=== PATIENT | male | born 1995 | race Caucasian/White ===

== ENCOUNTER 2019-03-07 10:48 | Emergency (ER) | payer MEDICAID ==
[~2019-03-07] VITALS: Ht 175.3 cm; Wt 93.0 kg
[~2019-03-07 10:48] MED LIST: CEPH-568
[2019-03-07] MEDS ORDERED: HYDROCODONE/ACETAMINOPHEN 5/325MG TABLET PO STA (11:27)
[2019-03-07 11:45] LABS: CLARITY URINE CLEAR (CLEAR); COLOR URINE YELLOW (YELLOW); KETONES URINE NEGATIVE (NEGATIVE); LEUKOCYTE ESTERASE URINE NEGATIVE (NEGATIVE); NITRITE URINE NEGATIVE (NEGATIVE); OCCULT BLOOD URINE NEGATIVE (NEGATIVE); PH URINE 6.5 (4.5-8.0); PROTEIN URINE NEGATIVE (NEGATIVE); SPECIFIC GRAVITY URINE 1.023 (1.005-1.030); UROBILINOGEN URINE 0.2 E.U./dL (0.2-1.0)
[2019-03-07 11:49] VITALS: BP 106/76
== END 2019-03-07 13:28 | disposition home or self-care (01) ==
LOC: ER 10:48
DX: M54.5 Low back pain (principal)
CPT/HCPCS: 81003; 99283

== ENCOUNTER 2021-10-25 09:19 | Emergency (ER) | payer BC, MEDICAID ==
[~2021-10-25] VITALS: Ht 175.3 cm; Wt 94.0 kg
[2021-10-25] MEDS ORDERED: CYCLOBENZAPRINE 10MG TABLET PO ONE (10:00)
[2021-10-25] MEDS ORDERED: KETOROLAC 60MG/2ML VIAL IM ONE (10:00)
[2021-10-25] MEDS: LIDOCAINE 5% PATCH TOP SCH ×2 (10:27→15:28)
[2021-10-25] MEDS ORDERED: HYDROCODONE/APAP 7.5/325MG 1 TAB TABLET PO ONE (11:15)
[2021-10-25] MEDS ORDERED: NAP5EC MT (11:50)
[2021-10-25] MEDS ORDERED: CYCL10TA7 MT ×2 (11:50)
[2021-10-25] MEDS ORDERED: MORPHINE SULFATE 4 MG/ML CPJ (NOT FOR IM USE) IV ONE (13:00)
[2021-10-25 13:03] LABS: HEMATOCRIT. 45.9 % (42.0-52.0); HEMOGLOBIN. 15.6 g/dL (14.0-18.0); MEAN CORPUSCULAR HEMOGLOBIN 29.3 pg (28.0-32.0); MEAN CORPUSCULAR VOLUME 86.3 fL (80.0-94.0); MEAN PLATELET VOLUME 8.5 fl (7.4-10.4); PLATELET 237 x1000/uL (130-400); RED BLOOD CELL COUNT 5.32 mill/uL (4.7-6.1); RED CELL DISTRIBUTION WIDTH 13.2 % (11.6-14.6)
[2021-10-25 13:10] LABS: CHLORIDE 105 mEq/L (98-107)
[2021-10-25] MEDS ORDERED: MORPHINE SULFATE 4 MG/ML CPJ (NOT FOR IM USE) IV NR (13:45)
[2021-10-25 13:49] LABS: PLATELET ESTIMATE NORMAL
[2021-10-25] MEDS ORDERED: HYDR-4009 MT ×2 (15:19→15:41)
[2021-10-25 15:28] VITALS: BP 131/0
== END 2021-10-25 16:03 | disposition home or self-care (01) ==
LOC: ER 09:19
DX: M54.50 Low back pain, unspecified (principal); M54.16 Radiculopathy, lumbar region; M47.897 Other spondylosis, lumbosacral region
CPT/HCPCS: 36415; 72100; 72148; 80053; 85025; 96372; 96374; 99284; J1885; J2270; Z7610

== ENCOUNTER 2024-11-18 23:13 | Emergency (ER) | payer BC, MEDICAID, OTHER ==
[~2024-11-18] VITALS: Ht 175.3 cm; Wt 93.0 kg
[~2024-11-18 23:13] MED LIST changes: +HYDR-4009 MT; +NAPR-1495 MT
[2024-11-18 23:21] VITALS: O2SAT 95
[2024-11-18 23:27] VITALS: TEMP 37; O2SAT 98
[2024-11-19 00:23] VITALS: BP 138/81; PULSE 89; RESP 16
[2024-11-19] MEDS: KETOROLAC 30MG/ML VIAL IM ONE (00:23)
[2024-11-19] MEDS: METOCLOPRAMIDE HCL 10MG/2ML VIAL IM ONE (00:23)
[2024-11-19] MEDS ORDERED: IBUP-2029 MT (00:51)
== END 2024-11-19 00:57 | disposition home or self-care (01) ==
LOC: ER 23:13
DX: R51.9 Headache, unspecified (principal)
CPT/HCPCS: 99284; 96372; J1885; J2765